=== PATIENT | male | born 1955 | race Caucasian/White ===

== ENCOUNTER → 2022-02-20 13:56 | Outpatient (CLI) | payer BC, SELFPAY ==
--- NOTE | ~2022-02-20 | XR_ITS ---
XR knee LT 3V DATE: 02/20/2022 14:14 INDICATION: Knee joint pain. No injury. TECHNIQUE: 3 views COMPARISON: None FINDINGS: There is mild suprapatellar knee joint effusion. There is slight periarticular spurring of the patella. There is mild loss of height at the medial compartment. No fracture or dislocation, periosteal reaction or bone destruction. No radiopaque intra-articular lo ose body or chondrocalcinosis. IMPRESSION: Mild suprapatellar knee joint effusion Mild osteoarthritis Reviewed, dictated and finalized at location B. 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
== END ==
PROVIDERS: PCP Physician Assistant; Visit Provider Physician Assistant
DX: M17.12 Unilateral primary osteoarthritis, left knee (principal); M25.462 Effusion, left knee
CPT/HCPCS: 73562

== ENCOUNTER → 2022-03-06 15:12 | Outpatient (CLI) | payer BC, SELFPAY ==
--- NOTE | ~2022-03-06 | XR_ITS ---
EXAMINATION:XR_[id number]_CR DATE: 03/06/2022 16:59 INDICATION: Bilateral shoulder pain. TECHNIQUE: AP, lateral and odontoid views of the cervical spine are provided. COMPARISON: None FINDINGS: A degree cervical dextrocurvature. 2 mm retrolisthesis C3 on C4, C4-C5 and C5 on C6. Odontoid is inta ct. Normal atlantoaxial interval. Cervical vertebral body heights are normal. Chronic appearing mild anterior wedging at T7 and T8. Moderate disc height loss with moderate to severe uncovertebral osteo arthritis at C3-C4 through C6-C7 and mild disc height loss at C7-T1 and several levels in the mid to upper thoracic spine. Multilevel moderate bilateral cervical facet osteoarthritis. Prevertebral soft tissues are normal. Visualized portion of the upper lungs are clear. IMPRESSION: 1. Moderate cervical spondylosis. Reviewed, dictated and finalized at location A. 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
--- NOTE | ~2022-03-06 | XR_ITS ---
EXAMINATION: XR shoulder LT min 2V, XR shoulder RT min 2V DATE: 03/06/2022 16:59 INDICATION: Bilateral shoulder pain TECHNIQUE: 1. AP and axillary and transscapular Y views of the left shoulder were obtained. 2. AP and axillary and transscapular Y views of the right shoulder were obtained. COMPARISON: None FINDINGS: Left shoulder: Normal alignment. No fracture. Glenohumeral joint is normal. Mild acromioclavicular osteoarthritis. S oft tissues are unremarkable. Visualized portions of the left lung are clear. Right shoulder: Normal alignment. Age-indeterminate nondisplaced fractures of the anterior right fifth and sixth ribs . Glenohumeral joint is normal. Mild acromioclavicular osteoarthritis. Soft tissues are unremarkable. Visualized portions of the right lung are clear. IMPRESSION: 1. Mild bilateral acromioclavicular osteoarthritis. 2. Age indeterminate nondisplaced fractures of the anterior right fifth and sixth ribs. Reviewed, dictated and finalized at location A. 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 Mild bilateral acromioclavicular osteoarthritis. 2. Age indeterminate nondisplaced fractures of the anterior right fifth and six th ribs.
== END ==
PROVIDERS: PCP Physician Assistant; Visit Provider Physician Assistant
DX: M47.892 Other spondylosis, cervical region (principal); M19.011 Primary osteoarthritis, right shoulder; M19.012 Primary osteoarthritis, left shoulder
CPT/HCPCS: 72040; 73030

== ENCOUNTER → 2022-04-10 15:34 | Outpatient (CLI) | payer BC, SELFPAY ==
--- NOTE | ~2022-04-10 | XR_ITS ---
XR wrist RT min 3V DATE: 04/10/2022 15:45 INDICATION: Generalized wrist pain for a year; no injury TECHNIQUE: 4 views COMPARISON: None FINDINGS: There is osteoarthritis at the second and third and to a lesser extent fourth metacarpophal angeal joints with medial subluxation at the second metacarpophalangeal joint. No fracture or dislocation, periosteal reaction or bone destruction of the right wrist. No erosive ch kina is noted. IMPRESSION: Osteoarthritis Reviewed, dictated and finalized at location L. CARRIER IMPRESSION: Osteoarthritis
== END ==
PROVIDERS: PCP Family Medicine; Visit Provider Family Medicine
DX: M19.031 Primary osteoarthritis, right wrist (principal)
CPT/HCPCS: 73110

== ENCOUNTER 2023-08-21 00:51 | Day surgery (SDC) | payer BC, SELFPAY ==
[2023-07-31 16:20] VITALS: BMI 21.5
[2023-08-21 06:20] VITALS: BP 106/84; PULSE 95; RESP 18; TEMP 36.3; O2SAT 100; BMI 19.6
--- NOTE | 2023-08-21 06:38 | P.PNAN_ITS ---
Anes - Initial Pre Proc Eval Procedure: Operation Date: 08/21/23 08:00 Proposed Procedures p Screening Colonoscopy - Celso Carter MD Date/Time: 08/21/23 06:38 Surgeon: Celso Carter MD Pre Op Diagnosis: neoplasm screening Patient Data Age: 68 Gender: M Height: 1.8 m Weight: 70 kg Allergies Allergy/AdvReac Type Severity Reaction Status Date / Time No Known Allergies Allergy Verified 07/31/23 16:16 Home Medications Medication Instructions Recorded Confirmed Type folic acid 1 mg tablet 1 mg PO DAILY 11/14/22 07/31/23 History methotrexate sodium 2.5 mg tablet 20 mg PO DAILY 07/31/23 07/31/23 History Patient hx anesthesia problems: none Family hx anesthesia problems: none Results Review: All pre-operative results and documents have been reviewed as part of the pre- operative evaluation. [facility] Past Medical History Medical History (Updated 08/21/23 @ 06:38 by Blayne Mohamud DO) Acquired keratosis [keratoderma] palmaris et plantaris Arthritis, rheumatoid Internal derangement of elbow Nicotine dependence, unspecified, in remission Surgical History Surgical History History of appendectomy (~1972) History of left knee surgery (~2001) History of right knee surgery (~1992) Family History Family History Father Acute myocardial infarction Carcinoma of colon Social History Social History Smoking status: Current some day smoker Tobacco type: cigars Alcohol intake: current Drinks per week: 1 Substance use type: does not use Lack of Transportation: No Lack of Food: Never True Current Housing: I Have Housing Concerned About Future Housing: No Difficulty Paying Gas/Electric Bills: No Difficulty Paying for Meds: No Currently Unemployed: No Education: High School Diploma/GED Difficulty w/ Childcare or Family Care: No Living arrangements: with family Spiritual care concerns: No Anes - Eval Final PreProcedure Day of Procedure 08/21/23 06:38 Patient weight: normal Heart: regular rate and rhythm Lungs: clear to auscultation and normal air movement Airway: Mallampati scale class II Neurological: alert and oriented Last oral intake: >/= 8 hours ASA classification: II Emergent: no Anesthetic plan: proceed Anesthesia type and monitoring: general GIVS and standard monitoring Results Review: All pre-operative results and documents have been reviewed as part of the pre- operative evaluation. Informed Consent: The patient's anesthetic plan and its attendant risks and benefits were discussed with the patient/family/POA. Questions were solicited and answers provided to the satisfaction of the patient/family/POA.
[2023-08-21] MEDS: LACTATED RINGERS 1,000 ML 150 ML IV CONT (06:43)
--- NOTE | 2023-08-21 07:50 | PM.HPGS ---
History of Present Illness History of Present Illness Consent: Risks, benefits, and alternatives have been discussed and questions answered. Patient agrees to proceed with procedure. Chief complaint: neoplasm screening Narrative: Michael Heller is a 68 year old male here for colonoscopy, last one 11 years ago Review of Systems Review of Systems: All systems reviewed & are unremarkable except as noted in HPI and below PMFSH Past Medical History Medical History (Updated 08/21/23 @ 06:38 by Blayne Mohamud DO) Acquired keratosis [keratoderma] palmaris et plantaris Arthritis, rheumatoid Internal derangement of elbow Nicotine dependence, unspecified, in remission Surgical History Surgical History History of appendectomy (~1972) History of left knee surgery (~2001) History of right knee surgery (~1992) Family History Family History Father Acute myocardial infarction Carcinoma of colon Social History Social History Smoking status: Current some day smoker Tobacco type: cigars Alcohol intake: current Drinks per week: 1 Substance use type: does not use Lack of Transportation: No Lack of Food: Never True Current Housing: I Have Housing Concerned About Future Housing: No Difficulty Paying Gas/Electric Bills: No Difficulty Paying for Meds: No Currently Unemployed: No Education: High School Diploma/GED Difficulty w/ Childcare or Family Care: No Living arrangements: with family Spiritual care concerns: No Meds Home Medications and Allergies Home Medications Medication Instructions Recorded Confirmed Type folic acid 1 mg tablet 1 mg PO DAILY 11/14/22 08/21/23 History methotrexate sodium 2.5 mg tablet 20 mg PO DAILY 07/31/23 08/21/23 History Allergies Allergy/AdvReac Type Severity Reaction Status Date / Time No Known Allergies Allergy Verified 08/21/23 06:44 Vital Signs Vital Signs - 24 hr 08/21/23 06:20 Temperature 97.3 F L Pulse Rate 95 Respiratory Rate 18 Blood Pressure 106/84 Pulse Oximetry 100 Oxygen Delivery Room Air Exam Const: General: comfortable and no acute distress HENMT: Face/Nose/Sinus: Normal nares present Eyes: General: appearance normal, both eyes and all related structures Neck: Neck: no JVD Resp: Auscultation: clear to auscultation bilaterally Cardio: Rate: regular rate Rhythm: regular rhythm GI: Inspection: non-distended GI Palp: Yes Soft to palpation Skin: General skin exam: normal color Neuro: General: gait normal Speech: normal speech Extrem: General: normal to inspection Psych: Mental Status: mental status grossly normal Assessment and Plan Assessment and plan (1) Screening for colon cancer: Code(s): Z12.11 - Encounter for screening for malignant neoplasm of colon Status: Acute Assessment and Plan: colonoscopy
[2023-08-21 08:05] VITALS: BP 82/56; PULSE 77; RESP 15; O2SAT 98
[2023-08-21 08:15] VITALS: BP 98/76; PULSE 90; RESP 20; O2SAT 100
[2023-08-21 08:25] VITALS: BP 103/84; PULSE 78; RESP 14; O2SAT 100
== END 2023-08-21 08:32 | disposition home or self-care (01) ==
PROVIDERS: PCP Family Medicine; Visit Provider Internal Medicine Gastroenterology
PROC: 0DJD8ZZ Inspection of Lower Intestinal Tract, Via Natural or Artificial Opening Endoscopic (ICD-10-PCS; CPT 45378; principal; 2023-08-21 08:00)
DX: Z12.11 Encounter for screening for malignant neoplasm of colon (principal); K64.8 Other hemorrhoids; M06.9 Rheumatoid arthritis, unspecified; Z79.631 Long term (current) use of antimetabolite agent; F17.290 Nicotine dependence, other tobacco product, uncomplicated
CPT/HCPCS: 45378; J2704; J7120